=== PATIENT | male | born 1995 | race Two or more races ===

== ENCOUNTER 2017-05-24 12:49 | Emergency (ER) | payer MEDICAID ==
[~2017-05-24] VITALS: Ht 5200 cm; Wt 77.9 kg
[2017-05-24 14:27] VITALS: BP 122/79
[2017-05-24] MEDS ORDERED: BENZ-16 PO (16:00)
[2017-05-24] MEDS ORDERED: AZIT-57 PO (16:00)
== END 2017-05-24 16:14 | disposition home or self-care (01) ==
LOC: ER 12:50
DX: R04.2 Hemoptysis (principal)
CPT/HCPCS: 71046; 99284

== ENCOUNTER 2017-12-27 21:09 | Emergency (ER) | payer MEDICAID ==
[~2017-12-27] VITALS: Ht 167.6 cm; Wt 79.5 kg
[2017-12-27 21:12] VITALS: BP 145/84
[2017-12-27] MEDS ORDERED: IBUP-1985 PO (21:48)
== END 2017-12-27 21:53 | disposition home or self-care (01) ==
LOC: ER 21:09
DX: S20.211A Contusion of right front wall of thorax, initial encounter (principal); J45.909 Unspecified asthma, uncomplicated; F17.210 Nicotine dependence, cigarettes, uncomplicated; F12.90 Cannabis use, unspecified, uncomplicated; Z79.899 Other long term (current) drug therapy; W51.XXXA Accidental striking against or bumped into by another person, initial encounter; Y93.89 Activity, other specified; Y92.89 Other specified places as the place of occurrence of the external cause; Y99.8 Other external cause status
CPT/HCPCS: 71100; 99284

== ENCOUNTER 2018-07-07 11:26 | Emergency (ER) | payer OTHER, MEDICAID ==
[~2018-07-07] VITALS: Ht 170.2 cm; Wt 73.0 kg
[~2018-07-07 11:26] MED LIST: IBUP-1985 PO
[2018-07-07 14:01] VITALS: BP 156/84
== END 2018-07-07 14:02 | disposition home or self-care (01) ==
LOC: ER 11:27
DX: S13.4XXA Sprain of ligaments of cervical spine, initial encounter (principal); R07.81 Pleurodynia; M54.5 Low back pain; J45.909 Unspecified asthma, uncomplicated; F12.90 Cannabis use, unspecified, uncomplicated; Z79.899 Other long term (current) drug therapy; V87.7XXA Person injured in collision between other specified motor vehicles (traffic), initial encounter; Y93.89 Activity, other specified; Y92.89 Other specified places as the place of occurrence of the external cause; Y99.8 Other external cause status
CPT/HCPCS: 71045; 99283